=== PATIENT | female | born 1985 | race Caucasian/White ===

== ENCOUNTER 2025-01-21 11:44 | Day surgery (SDC) | payer BC ==
[2025-01-21] MEDS ORDERED: Lactated Ringers IV ONE (11:45)
[2025-01-21] MEDS ORDERED: LIDOCAINE HCL 2% 100 MG/5 ML IJ ONE (11:45)
[2025-01-21 13:07] LABS: HCG URINE TEST NEGATIVE (NEGATIVE)
[2025-01-21] MEDS ORDERED: propofoL IV ONE (14:25)
--- NOTE | 2025-01-21 16:41 | XRAY ---
Indication: Right C2-C4 MBB. Intraoperative fluoroscopy provided for 21 seconds. 3 digital spot images submitted for interpretation demonstrates posterior needle tips projecting over expected right C2-C4 nerve roots. Correlate with intraoperative findings/report.
--- NOTE | 2025-01-21 17:20 | XRAY ---
21 seconds of fluoroscopy was used in surgery for a right C2-C4 MBB.
== END 2025-01-21 14:55 | disposition home or self-care (01) ==
LOC: SDC-PAIN 11:44
PROVIDERS: ATTEND Psychiatry & Neurology Pain Medicine
DX: M47.812 Spondylosis without myelopathy or radiculopathy, cervical region (principal)
CPT/HCPCS: 64490; 64491; 72040; 81025; 82947; J2704